=== PATIENT | female | born 1965 ===

== ENCOUNTER 2019-04-13 08:32 | Inpatient (IN) | payer MEDICAID ==
[2019-03-30 11:30] LABS: APPEARANCE,URINE CLEAR; BILIRUBIN, URINE NEGATIVE (NEGATIVE); COLOR,URINE PALE YELLOW; GLUCOSE, URINE (UA) NEGATIVE (NEGATIVE); KETONES,URINE NEGATIVE (NEGATIVE); LEUKOCYTE ESTERASE ,URINE 1+ (NEGATIVE); NITRITE,URINE NEGATIVE (NEGATIVE); PH,URINE 7 (4.5-8.0); PROTEIN,URINE NEGATIVE (NEGATIVE); UROBILINOGEN,URINE NORMAL MG/DL (0.0-1.0)
[2019-03-30 11:43] LABS: ANION GAP 10 mmol/L (5-15); BLOOD UREA NITROGEN 16 mg/dL (7-18); CALCIUM 9.4 MG/DL (8.5-10.1); CARBON DIOXIDE 27 MMOL/L (21-32); CHLORIDE 106 MMOL/L (98-107); CREATININE 0.8 MG/DL (0.55-1.30); SODIUM 143 MMOL/L (136-145)
[2019-03-30 11:46] LABS: BASOPHILS % (AUTO) 0.8 % (0.0-2.0); EOSINOPHILS % (AUTO) 1.4 % (0.0-3.0); HEMATOCRIT 39.5 % (37.0-47.0); HEMOGLOBIN 13.2 G/DL (12.0-16.0); INR 0.9 (0.9-1.1); LYMPHOCYTES % (AUTO) 35.8 % (20.0-45.0); MEAN CORPUSCULAR VOLUME 88 FL (80-99); MONOCYTES % (AUTO) 5.1 % (1.0-10.0); NEUTROPHILS % (AUTO) 56.9 % (45.0-75.0); PLATELET COUNT 374 K/UL (150-450); RED BLOOD COUNT 4.48 M/UL (4.20-5.40); RED CELL DISTRIBUTION WIDTH 11.2 % (11.6-14.8); WHITE BLOOD COUNT 5.2 K/UL (4.8-10.8)
--- NOTE | 2019-03-30 13:26 | Diagnostic Imaging Report ---
Indication: Cough Comparison: None 2 views of the chest obtained. Findings: Cardiomediastinal silhouette and pulmonary vascularity are within normal limits for age. The diaphragmatic contour is smooth and costophrenic angles are sharp. No pleural effusions are identified. The bones are unremarkable. Impression: No acute disease
--- NOTE | 2019-04-10 15:27 | Cardiology Report ---
APPROVED REPORT EKG Measurement Heart [id number] AK 140P-3 [id number] Normal sinus rhythm Normal ECG
--- NOTE | 2019-04-12 16:00 | Pre-op HX & Phy Repo 2 SIG ---
DATE OF ADMISSION: 04/13/2019 SCHEDULED FOR SURGERY: April 13, 2019. HISTORY OF PRESENT ILLNESS: The patient is a 53-year-old female in overall good health with invasive ductal carcinoma of the left breast. The patient presented recently with a 2 cm mass in the left breast just under the areola. She also had a mass in the right breast lower outer quadrant 1.5 cm. Ultrasound revealed multiple nodules. She underwent core biopsy on the right at 4 o'clock revealing fibroadenoma and on the right at 2 o'clock revealing fibroadenoma. However core biopsy left breast mass measuring 1.9 x 0.8 x 1.9 cm, located at 9 o'clock in the left breast 1 cm from the nipple revealed invasive ductal carcinoma, poorly differentiated. Tumor is estrogen receptor positive, progesterone receptor negative, HER 2-, KI-67 was high at 82%. The patient was seen by Medical Oncology, who felt that the next step would be surgery followed by additional treatments as warranted by final pathology as there was a large mass directly behind the nipple areola. The patient was advised that she would undergo partial mastectomy including the nipple areola as well as left axillary lymph node biopsy. PAST MEDICAL HISTORY: MEDICATIONS: Statin for high cholesterol. ALLERGIES: None. OPERATIONS: section. REVIEW OF SYSTEMS: 2, para 2, last menstrual period age 40. PHYSICAL EXAMINATION: GENERAL: The patient is 5 feet 4 inches, 186 pounds. VITAL SIGNS: Within normal limits. LUNGS: Clear. HEART: Regular rhythm. BREASTS: Moderate in size and ptotic. Right breast has no palpable mass. The left breast has a 2 to 3 centimeter mass behind the nipple and areola. There is no palpable axillary or supraclavicular lymphadenopathy. ABDOMEN: Soft. PELVIC AND RECTAL: Per primary care. EXTREMITIES: Without edema. NEUROLOGIC: Physiologic. IMPRESSION: Invasive ductal carcinoma, left breast, poorly differentiated. PLAN: Left breast partial mastectomy including nipple and areola and left axillary lymph node biopsy. I have had a full discussion with the patient regarding the nature of her condition, the nature of the surgery, indications, alternatives, options and risks including bleeding, infection, need for additional procedures and treatment including possible surgery, chemotherapy, radiation, hormonal blockade, and other treatments, scarring and deformity of the breast due to need to resect the nipple and areola to be sure the clearance is obtained, etc. All questions have been answered. The patient understands and agrees to proceed. Sudeep Ambrosio M.D. DR: Oneyda JOB#: [id number] CC:
[2019-04-13] VITALS (16 sets, daily range): BP systolic 108–138; BP diastolic 49–79
[~2019-04-13] VITALS: Ht 162.6 cm; Wt 81.6 kg
[2019-04-13] MEDS ORDERED: fentaNYL 100 mcg/2 mL IV ONE (09:07)
[2019-04-13] MEDS ORDERED: Midazolam 2mg/2ml Inj ONE (09:07)
[2019-04-13] MEDS ORDERED: Propofol 200mg/20ml IV ONE (09:09)
[2019-04-13] MEDS ORDERED: Lidocaine 1% MPF 10mg/ml 5ml ONE (09:09)
[2019-04-13] MEDS ORDERED: ATORVASTATIN CA40 MG ORAL (09:23)
--- NOTE | 2019-04-13 09:32 | Pre-Procedure Note/Attestation ---
Pre-Procedure Note/Attestation Complete Prior to Procedure Planned Procedure: left Procedure Narrative: left breast partial mastectomy including nipple-areola and left axillary lymph node biopsy Indications for Procedure Pre-Operative Diagnosis: invasive ductal carcinoma left breast Attestation I attest that I discussed the nature of the procedure; its benefits; risks and complications; and alternatives (and the risks and benefits of such alternatives ), prior to the procedure, with the patient (or the patient's legal b2b outside sales representative). I attest that, if there was a reasonable possibility of needing a blood transfusion, the patient (or the patient's legal b2b outside sales representative) was given the [facility] standardized written summary, pursuant to the Ramin Josemanuel Blood Safety Act ([place] Health and Safety Code # 1645, as amended). I attest that I re-evaluated the patient just prior to the surgery and that there has been no change in the patient's H&P, except as documented below:none Sudeep Ambrosio MD Apr 13, 2019 09:32
[2019-04-13] MEDS ORDERED: Bacitracin 50000 Units Vial ONE (09:44)
[2019-04-13] MEDS ORDERED: NS Irrig 1000ml IRRIG ONE ×2 (09:53→10:18)
[2019-04-13] MEDS ORDERED: Rocuronium Bromide 50mg/5ml Inj IV ONE (09:56)
[2019-04-13] MEDS ORDERED: Sterile Water Irrig 1000ml IRRIG ONE (10:00)
[2019-04-13] MEDS ORDERED: LR 1000ml ONE (10:00)
[2019-04-13] MEDS ORDERED: Succinylcholine 20mg/ml 10ml vial ONE (10:00)
[2019-04-13] MEDS ORDERED: Neostigmine 1mg/ml 10ml Inj ONE (10:00)
[2019-04-13] MEDS ORDERED: Acetaminophen (Non formulary) 100 ML IV ONE (10:45)
--- NOTE | 2019-04-13 10:46 | Anethesia Preoperative Eval ---
Anesthesia Pre-op PMH/ROS General Date of Evaluation: Apr 13, 2019 Time of Evaluation: 09:58 Anesthesiologist: Doug ASA Score: ASA 2 Mallampati Score Class I : Soft palate, uvula, fauces, pillars visible Class II: Soft palate, uvula, fauces visible Class III: Soft palate, base of uvula visible Class IV: Only hard plate visible Mallampati Classification: Class II Surgeon: Hebert Diagnosis: L breast CA Surgical Procedure: L breast partial mastectomy with axillary L/N dissection Anesthesia History: none Family History: no anesthesia problems Allergies: Coded Allergies: No Known Allergies (Unverified , 04/13/19) Medications: see eMAR Patient NPO?: Yes Past Medical History Cardiovascular: Denies: HTN, CAD, IA, valve dz, arrhythmia, other Pulmonary: Denies: asthma, COPD, SHRUTI, other Gastrointestinal/Genitourinary: Reports: GERD; Denies: CRI, ESRD, other Neurologic/Psychiatric: Reports: depression/anxiety; Denies: dementia, CVA, TIA, other Endocrine: Denies: DM, hypothyroidism, steroids, other HEENT: Denies: cataract (L), cataract (R), glaucoma, CHEHALIS (L), CHEHALIS (R), other Hematology/Immune: Denies: anemia, DVT, bleeding disorder, other Musculoskeletal/Integumentary: Denies: OA, RA, DJD, DDD, edema, other Other: other - overweight PMH Narrative: as above PSxH Narrative: C section x2 Anesthesia Pre-op Phys. Exam Physician Exam Last Vital Signs Date Time Temp Pulse Resp B/P (MAP) Pulse Ox O2 Delivery O2 Flow Rate FiO2 04/13/19 09:14 Room Air 04/13/19 09:00 98.1 64 18 138/54 97 Constitutional: NAD Neurologic: CN 2-12 intact Cardiovascular: no M/R/G Respiratory: CTA Gastrointestinal: S/NT/ND Airway Exam Mallampati Score: Class II MO: full Neck: flexible ROM: full Teeth: intact Dentures: no upper, no lower Anesthesia Pre-op A/P Labs see chart Studies Pre-op Studies: EKG - NSR Risk Assessment & Plan Assessment: ASA 2 Plan: GA with ETT Pre-Antibiotics Drug: Ancef 1gr Given Within 1 Hr of Incision: Yes Time Given: 10:35 Serge Camacho MD Apr 13, 2019 10:46
[2019-04-13] MEDS ORDERED: LR 1000ml 1,000 ML IVLG SCH (10:47)
[2019-04-13] MEDS ORDERED: Glycopyrrolate 0.2mg/ml 1ml Vial ONE (10:49)
[2019-04-13] MEDS ORDERED: Morphine Sulfate 10mg/ml Inj ONE (10:49)
[2019-04-13] MEDS ORDERED: Sodium Chloride 10ml vial INJ ONE (10:50)
[2019-04-13] MEDS ORDERED: DiphenhydrAMINE 50mg/ml Inj IVP PRN (11:00)
[2019-04-13] MEDS ORDERED: Ketorolac 30mg Inj IV PRN (11:00)
[2019-04-13] MEDS ORDERED: Meperidine 50mg/ml Inj(FOR RIGORS ONLY) IV PRN (11:00)
[2019-04-13] MEDS ORDERED: Metoclopramide 10mg/2ml Inj IVP PRN (11:00)
--- NOTE | 2019-04-13 11:56 | Immediate Post-Op Evaluation ---
Immediate Post-Op Evalulation Immediate Post-Op Evalulation Procedure: L breast partial mastectomy with axillary L/N dissection Date of Evaluation: Apr 13, 2019 Time of Evaluation: 11:55 IV Fluids: 1000 Blood Products: none Estimated Blood Loss: 20 Urinary Output: none Blood Pressure Systolic: 118 Blood Pressure Diastolic: 56 Pulse Rate: 72 Respiratory Rate: 20 O2 Sat by Pulse Oximetry: 99 Temperature (Fahrenheit): 97.4 Pain Score (1-10): 1 Nausea: No Vomiting: No Complications none Patient Status: reacts, patent, extubated, none Hydration Status: adequate Serge Camacho MD Apr 13, 2019 11:56
--- NOTE | 2019-04-13 11:58 | Brief Operative Note ---
Immediate Post Operative Note Operative Note Pre-op Diagnosis: invasive ductal carcinoma left breast Procedure: left breast partial mastectomy including nipple-areola, left axillary lymph node biopsy Post-op Diagnosis: same Post-op Diagnosis: same as pre-op Findings: consistent w/pre-op dx studies Surgeon: papito Anesthesiologist: crystal Anesthesia: general Specimen: yes - left breast cancer, left axillary lymph node Complications: none Condition: stable Fluids: see anesthesia record Estimated Blood Loss: minimal Drains: KATIE Implant(s) used?: No Sudeep Ambrosio MD Apr 13, 2019 11:58
[2019-04-13] MEDS ORDERED: HYDROcodone/Acetamin 5/325 tab ORAL PRN (12:00)
[2019-04-13] MEDS ORDERED: HYDROmorphone 1mg/ml Carpuject SUBQ PRN (12:00)
--- NOTE | 2019-04-13 13:15 | NUR ---
NURSE NOTES: Received patient from PACU nurse BREANN Norton, patient asleep but arosable for name with out no distress, surgical site dressing no stain, and surgical bra intact, KATIE in place, bed on low position locked, call light with in reach family at bedside, no belonging listed family arrived with belonging, will document.
--- NOTE | 2019-04-13 13:30 | NUR ---
NURSE NOTES: REPORT RECEIVED FROM [facility] CHARGE NURSE. HEAD TO TOE ASSESSMENT DONE. LEFT BREAST SURGICAL SITE C/D/I. WITH SURGICAL BRA IN PLACE. KATIE DRAIN COMPRESSED. SEROSANGUINEOUS NOTED. RIGHT HAND HEPLOCK PATENT. O2 ON VIA 3 L NC. PATIENT AND FAMILY ORIENTED TO ROOM. BED IN LOW AND LOCKED POSITION. CALL LIGHT WITHIN REACH.
[2019-04-13] MEDS: D5 1/2NS w/KCl 20mEq 1,000 ML IV SCH (14:56)
--- NOTE | 2019-04-13 16:30 | Operative Note - Dictated ---
DATE OF OPERATION: 04/13/2019 SURGEON: Sudeep Ambrosio M.D. COIL BINDER: None. ANESTHESIOLOGIST: Serge Camacho M.D. TYPE OF ANESTHESIA: General. PREOPERATIVE DIAGNOSIS: Invasive ductal carcinoma, left breast. POSTOPERATIVE DIAGNOSIS: Invasive ductal carcinoma, left breast. OPERATION PERFORMED: Left breast partial mastectomy including nipple and areola and left axillary lymph node biopsy. DESCRIPTION OF PROCEDURE: The patient was taken to the operating room and under general anesthesia with sequential compression device stockings in place, she was prepped and draped in usual fashion. The mass was located just under the nipple-areolar complex at 9 o'clock with a 2 x 3 cm mass. A transversely oriented elliptical incision was outlined and incised sharply. Flaps were dissected circumferentially. A wide excision was performed down to the chest wall and the specimen was oriented with suture markers, medial and superior with the nipple anterior. The specimen was resected and pathology inspected the tissue and felt the margin was close superiorly. Additional superior tissue was taken. The field was copiously irrigated and hemostasis carefully achieved with cautery. The incision was closed with interrupted 3-0 Vicryl deep dermal subcutaneous sutures followed by rafita. Then, a left axillary incision was made achieving hemostasis with cautery and incising the clavipectoral fascia. Obvious somewhat enlarged lymph node was visualized and resected using the Thunderbeat electrosurgical device. Pathology confirmed the presence of lymph node. No other palpable or visible abnormal nodes were present. The field was irrigated and hemostasis carefully achieved. Through a separate stab incision inferolaterally, a large flat Brain-Araujo drain was placed into the axilla and sutured to the skin with 2-0 nylon skin suture. The clavipectoral fascia was closed with interrupted 3-0 Vicryl. Subcutaneous tissue was closed with interrupted 3-0 Vicryl and skin closed with continuous 4-0 Monocryl subcuticular suture. Mastisol and half-inch Steri-Strips were applied to the axillary incision and dry sterile dressings were applied to both incisions. Final sponge and needle counts were correct. The post partial mastectomy surgical brassiere was applied. The patient tolerated the procedure well and left the operating room in good condition. Sudeep Ambrosio M.D. DR: ANNE JOB#: [id number] CC:
[2019-04-13] MEDS: ceFAZolin sod 1 GM in D5W 55 ML IV SCH (18:41)
--- NOTE | 2019-04-13 19:15 | NUR ---
NURSE NOTES: Report received from BREANN Carrillo. Rounds done, patient sleeping quietly, no distress noted. Family members at bedside. Bed in low position, locked, side rails up x2, call light within reach. Will continue to monitor.
--- NOTE | 2019-04-13 19:37 | NUR ---
HAND-OFF: Report given to JOSE DAVID WILHELM RN.
--- NOTE | 2019-04-13 20:10 | NUR ---
NURSE NOTES: Patient alert, oriented, no distress noted. Denies pain at this time. No nausea or vomiting. Has not voided yet, but states has not been drinking fluids. Encouraged fluids, will continue to assess. Left breast dressing intact and dry, KATIE patent and intact, draining serous sanguineous fluid, surgical bra on. IV in R hand, intact and patent, IVF D5 1/2NS with 20 K at 100 cc/hr. Will continue to monitor.
[2019-04-14] VITALS: BP 102/55
--- NOTE | 2019-04-14 00:05 | NUR ---
NURSE NOTES: Instructed verbally and through demonstration in the care, emptying and recording of KATIE. Patient verbalized understanding, will reinforce teaching at later time in shift. Obtained approx 7 cc of serous sanguineous fluid.
[2019-04-14] MEDS: D5 1/2NS w/KCl 20mEq 1,000 ML IV SCH (01:05)
[2019-04-14] MEDS: ceFAZolin sod 1 GM in D5W 55 ML IV SCH (02:03)
[2019-04-14 04:00] VITALS: BP 105/53
--- NOTE | 2019-04-14 06:00 | NUR ---
NURSE NOTES: Reviewed KATIE care, emptying and recording with patient. Obtained 5 cc output. Total KATIE output for 12 hour shift is 12 cc.
--- NOTE | 2019-04-14 07:40 | NUR ---
HAND-OFF: Report given to BREANN Montanez. No distress noted. Patient tolerating PO well, no N/V. IVF discontinued per MD order.
--- NOTE | 2019-04-14 07:45 | NUR ---
NURSE NOTES: Received report from BREANN Moreno. Rounding done with outgoing nurse. Pt a/o x 4, in bed. No respiratory distress noted. Denies any pain at this time. Daughter is at bedside. Lt breast surgical site is C/D/I. Bed in lowest position, call light within reach. Will continue to monitor.
[2019-04-14 08:00] VITALS: BP 109/50
[2019-04-14 12:00] VITALS: BP 112/53
--- NOTE | 2019-04-14 12:18 | General Progress Note ---
Progress Note Progress Note Doing well. Required Dilaudid SQ overnight and now okay with [place] Left breast and axilla incisions clean and dry. KATIE 17cc serosang Imp. Stable Plan: discharge Rx [place] #30 To care for KATIE drain instructions/limitations/supplies discussed/provided f/u 04/20 office Sudeep Ambrosio MD Apr 14, 2019 12:18
[2019-04-14] MEDS ORDERED: NORCO 5-325 TA1 EACH ORAL (12:28)
--- NOTE | 2019-04-14 12:57 | NUR ---
NURSE NOTES: Pt a/o x 4. Discharge instruction was given to pt/daughter. Verbalized understanding. Belongings checked with pt/daughter, all belongings were given to pt. Arm band, IV access were removed. Pt discharged accompanied by her daughter with steady gait.
[2019-04-14] MEDS ORDERED: Tubing IV Secondary IV ONE (12:59)
[2019-04-14 13:54] VITALS: BP 116/72
--- NOTE | 2019-04-14 13:54 | 48 Hour Post Anesthesia Eval ---
Post Anesthesia Evaluation Procedure: L breast partial mastectomy with axillary L/N dissection Date of Evaluation: Apr 14, 2019 Time of Evaluation: 13:53 Blood Pressure Systolic: 116 0: 72 Pulse Rate: 68 Respiratory Rate: 20 Temperature (Fahrenheit): 97.6 O2 Sat by Pulse Oximetry: 98 Airway: patent Nausea: No Vomiting: No Pain Intensity: 2 Hydration Status: adequate Cardiopulmonary Status: stable Mental Status/LOC: patient returned to baseline Follow-up Care/Observations: n/a Post-Anesthesia Complications: none Follow-up care needed: ready to discharge Serge Camacho MD Apr 14, 2019 13:54
--- NOTE | 2019-04-14 14:24 | NUR ---
CASE MANAGEMENT:REVIEW 53 YR OLD FEMALE HERE FOR ELECTIVE SURGERY SI: LT BREAST PARTIAL MASTECTOMY 98.3 59 18 112/53 95% ON RA IS: DILAUDID SQ Q3HRS PRN : MED/SURG 3 [facility] 04/14/19 DISCHARGE HOME
--- NOTE | 2019-04-15 12:31 | Discharge Summary ---
Discharge Summary Hospital Course Date of Admission Apr 13, 2019 at 13:25 Date of Discharge Apr 14, 2019 at 13:00 Admitting Diagnosis Invasive ductal carcinoma, left breast. Reason for Hospitalization: elective surgery HPI Rhona Albarado , 53 year old female , was admitted on Apr 13, 2019 at 13:25 for invasive ductal carcinoma, left breast. Patient was admitted for elective surgery. Procedures s/p 04/13/[address] Ambrosio Left breast partial mastectomy including nipple and areola and left axillary lymph node biopsy. Hospital Course s/p surgery course of recovery unremarkable pain management was addressed as needed initially on Dilaudid subcutaneously overnight, then switched to oral [place] left breast and axilla incisions clean and dry KATIE output was closely monitored patient remained hemodynamically stable pain was controlled tolerated diet ambulated voided freely patient was ready for discharge discharge instructions/limitation/supplies discussed/provided patient was instructed how to care for KATIE drain prescription for [place] 5/325 #30 provided outpatient follow-up in the office 04/20 FINAL DIAGNOSES Invasive ductal carcinoma, left breast. s/p Left breast partial mastectomy including nipple and areola and left axillary lymph node biopsy. Discharge Medications Continued Medications: Atorvastatin Calcium* (Atorvastatin Calcium*) 40 Mg Tablet 40 MG ORAL BEDTIME, TAB (This prescription has been renewed) Hydrocodone Bit/Acetaminophen 5-325* ([place] 5-325*) 1 Each Tablet 1 TAB ORAL Q4H PRN for For Pain, #30 TAB 0 Refills (This prescription has been renewed) Discharge Condition Upon Discharge: stable Discharge Disposition Patient was discharged home Discharge Instructions Discharge Instructions Special Instructions I have been assigned to complete a D/C Summary on this account. I was not involved in the patient management Jaelyn Colmenares NP Apr 15, 2019 12:31
== END 2019-04-14 13:00 | disposition home or self-care (01) | DRG 363 ==
LOC: SUR 08:32 → 3E 13:25
PROC: 07B60ZX Excision of Left Axillary Lymphatic, Open Approach, Diagnostic (ICD-10-PCS; 2019-04-13)
PROC: 0HBU0ZZ Excision of Left Breast, Open Approach (ICD-10-PCS; principal; 2019-04-13 10:30)
DX: C50.012 Malignant neoplasm of nipple and areola, left female breast (principal); Z17.0 Estrogen receptor positive status [ER+]; E78.00 Pure hypercholesterolemia, unspecified
CPT/HCPCS: 36415; 71046; 80048; 81001; 85025; 85610; 85730; 87081; 93005; 94003; 94150; J2250; J2405; J2710